=== PATIENT | female | born 1940 | race Caucasian/White ===

== ENCOUNTER 2024-09-17 18:09 | Emergency (ER) | payer BC, MEDICARE ==
[~2024-09-17] VITALS: Ht 154.9 cm; Wt 63.5 kg
[2024-09-17] MEDS ORDERED: ACETAMINOPHEN ES 500 MG TABLET ONE (18:31)
[2024-09-17] MEDS: ACETAMINOPHEN ES 500 MG TABLET PO ONE (18:32)
[2024-09-17 18:43] LABS: BASOPHILS # (AUTO) 0.1 K/uL (0.0-0.2); BASOPHILS % (AUTO) 0.6 % (0.0-2.0); EOSINOPHILS # (AUTO) 0.1 K/uL (0.0-0.7); EOSINOPHILS % (AUTO) 1.5 % (0.0-6.0); HEMATOCRIT 42 % (33-45); HEMOGLOBIN 14.8 g/dL (11.5-14.8); LYMPHOCYTES # (AUTO) 3.1 K/uL (0.8-4.8); LYMPHOCYTES % (AUTO) 38.8 % (20.0-44.0); MEAN CORPUSCULAR HEMOGLOBIN 32 PG (26.0-33.0); MEAN CORPUSCULAR HGB CONC 35 g/dl (31.0-36.0); MEAN CORPUSCULAR VOLUME 91 fL (82-100); MONOCYTES # (AUTO) 0.5 K/uL (0.1-1.30); MONOCYTES % (AUTO) 6.4 % (2.0-12.0); NEUTROPHILS # (AUTO) 4.2 K/uL (1.8-8.9); NEUTROPHILS % (AUTO) 52.7 % (43.0-81.0); PLATELET COUNT (AUTO) 250 K/uL (150-450); RED BLOOD CELL COUNT(AUTO) 4.66 MIL/uL (4.0-5.2); RED CELL DISTRIBUTION WIDTH 14.7 % (11.5-15.0); WHITE BLOOD COUNT (AUTO) 7.9 K/uL (4.3-11.0)
[2024-09-17 19:20] LABS: CALCIUM, SERUM 9.2 mg/dL (8.5-10.1); CREATININE 0.6 mg/dL (0.6-1.3); POTASSIUM 3.4 mmol/L (3.5-5.1)
[2024-09-17] MEDS ORDERED: LEVO50TA8 PO (19:25)
[2024-09-17] MEDS ORDERED: ZOLP10TA2 PO (19:25)
[2024-09-17] MEDS ORDERED: IBUP-23 PO (19:25)
[2024-09-17 21:58] VITALS: BP 138/88; TEMP 98.2; O2SAT 98
== END 2024-09-17 21:58 | disposition left against medical advice (07) ==
LOC: ER 18:20
DX: S70.01XA Contusion of right hip, initial encounter (principal); R51.9 Headache, unspecified; E03.9 Hypothyroidism, unspecified; W01.0XXA Fall on same level from slipping, tripping and stumbling without subsequent striking against object, initial encounter; Y93.89 Activity, other specified; Y92.89 Other specified places as the place of occurrence of the external cause; Y99.8 Other external cause status
CPT/HCPCS: 36415; 70450-TC; 71045-TC; 72170-TC; 73502; 80048-TC; 85025-TC

== ENCOUNTER 2024-09-17 22:59 | Inpatient (IN) | payer MEDICARE, OTHER ==
[~2024-09-17] VITALS: Ht 154.9 cm; Wt 70.8 kg
[~2024-09-17 22:59] MED LIST: IBUP-23 PO; LEVO50TA8 PO; ZOLP10TA2 PO
[2024-09-17] MEDS ORDERED: ONDANSETRON HCL/PF 4 MG/2 ML VIAL ONE (23:58)
[2024-09-17] MEDS ORDERED: MORPHINE SULFATE INJ 2 MG/ML DISP.SYRIN ONE (23:58)
[2024-09-17] MEDS: ONDANSETRON HCL/PF - ER 4 MG/2 ML VIAL IV ONE (23:59)
[2024-09-17] MEDS: MORPHINE SULFATE INJ 2 MG/ML DISP.SYRIN IV ONE (23:59)
[2024-09-18 00:01] LABS: BASOPHILS % (AUTO) 0.3 % (0.0-2.0); EOSINOPHILS % (AUTO) 0.1 % (0.0-6.0); HEMATOCRIT 41 % (33-45); HEMOGLOBIN 14.6 g/dL (11.5-14.8); LYMPHOCYTES % (AUTO) 16.7 % (20.0-44.0); MEAN CORPUSCULAR HEMOGLOBIN 33 PG (26.0-33.0); MEAN CORPUSCULAR HGB CONC 36 g/dl (31.0-36.0); MEAN CORPUSCULAR VOLUME 93 fL (82-100); MONOCYTES # (AUTO) 0.8 K/uL (0.1-1.30); NEUTROPHILS # (AUTO) 9.1 K/uL (1.8-8.9); NEUTROPHILS % (AUTO) 75.9 % (43.0-81.0); PLATELET COUNT (AUTO) 231 K/uL (150-450); RED CELL DISTRIBUTION WIDTH 14.6 % (11.5-15.0)
[2024-09-18 00:16] LABS: CALCIUM, SERUM 9.4 mg/dL (8.5-10.1); CREATININE 0.6 mg/dL (0.6-1.3); POTASSIUM 3.5 mmol/L (3.5-5.1)
[2024-09-18 00:28] LABS: ALBUMIN 3.7 g/dL (3.4-5.0); BILIRUBIN,TOTAL 0.4 mg/dL (0.2-1.0); TOTAL PROTEIN, SERUM 7.6 g/dL (6.4-8.2)
[2024-09-18] MEDS ORDERED: KETOROLAC TROMETHAMINE 15 MG/ML VIAL ONE (02:10)
[2024-09-18] MEDS: KETOROLAC TROMETHAMINE 15 MG/ML VIAL IV ONE (02:13)
[2024-09-18] MEDS ORDERED: MAG HYDROX/AL HYDROX/SIMETH 30 ML UDC PO PRN (02:30)
[2024-09-18] MEDS ORDERED: ONDANSETRON HCL/PF 4 MG/2 ML VIAL IVP PRN (02:30)
[2024-09-18] MEDS ORDERED: Z GUARD REMEDY 4 OZ OINT TP PRN (02:30)
[2024-09-18] MEDS ORDERED: MAGNESIUM HYDROXIDE 30 ML UDC PO PRN (02:30)
[2024-09-18] MEDS: LEVOTHYROXINE SODIUM 50 MCG TABLET PO SCH (08:29)
[2024-09-18 09:00] VITALS: BP 139/104; TEMP 99.7; O2SAT 97
[2024-09-18 09:30] VITALS: BP 159/73; TEMP 99; O2SAT 96
[2024-09-18] MEDS: HYDROCODONE/APAP 10/325MG TABLET PO PRN (10:31)
[2024-09-18 15:22] VITALS: BP 159/73; TEMP 99; O2SAT 96
[2024-09-18 16:00] VITALS: BP 145/65; TEMP 99.3; O2SAT 96
[2024-09-18 16:35] VITALS: TEMP 98.1
[2024-09-18 20:00] VITALS: BP 149/86; TEMP 98.1; O2SAT 100
[2024-09-19 04:01] VITALS: BP 149/86; TEMP 98; O2SAT 100
[2024-09-19 07:29] LABS: BASOPHILS % (AUTO) 0.2 % (0.0-2.0); EOSINOPHILS % (AUTO) 0.3 % (0.0-6.0); HEMATOCRIT 37 % (33-45); HEMOGLOBIN 13.9 g/dL (11.5-14.8); LYMPHOCYTES # (AUTO) 1.6 K/uL (0.8-4.8); LYMPHOCYTES % (AUTO) 20.1 % (20.0-44.0); MEAN CORPUSCULAR HEMOGLOBIN 35 PG (26.0-33.0); MEAN CORPUSCULAR HGB CONC 38 g/dl (31.0-36.0); MEAN CORPUSCULAR VOLUME 93 fL (82-100); MONOCYTES # (AUTO) 0.6 K/uL (0.1-1.30); MONOCYTES % (AUTO) 7.3 % (2.0-12.0); NEUTROPHILS # (AUTO) 5.9 K/uL (1.8-8.9); NEUTROPHILS % (AUTO) 72.1 % (43.0-81.0); PLATELET COUNT (AUTO) 225 K/uL (150-450); RED BLOOD CELL COUNT(AUTO) 3.97 MIL/uL (4.0-5.2); RED CELL DISTRIBUTION WIDTH 14.6 % (11.5-15.0); WHITE BLOOD COUNT (AUTO) 8.2 K/uL (4.3-11.0)
[2024-09-19 07:59] LABS: CREATININE 0.7 mg/dL (0.6-1.3); MAGNESIUM 2.2 mg/dL (1.8-2.4); PHOSPHORUS 3.1 mg/dL (2.5-4.9); POTASSIUM 3.4 mmol/L (3.5-5.1)
[2024-09-19 08:00] VITALS: BP 147/81; TEMP 99; O2SAT 94
[2024-09-19] MEDS: ACETAMINOPHEN 325 MG TABLET PO PRN (09:02)
[2024-09-19] MEDS ORDERED: POTASSIUM CHLORIDE 20 MEQ TAB.PRT.SR PO ONE (11:00)
[2024-09-19] MEDS: POTASSIUM CHLORIDE 20 MEQ TAB.PRT.SR PO ONE (11:03)
[2024-09-19 15:11] LABS: THYROID STIMULATING HORMONE 3.7 uIU/mL (0.358-3.74)
[2024-09-19] MEDS ORDERED: IOHEXOL-350 100 ML VIAL IV ONE (15:39)
[2024-09-19] MEDS ORDERED: IV NS 0.9% 250 ML IV ONE (15:40)
[2024-09-19 16:00] VITALS: BP 160/80; TEMP 98.6; O2SAT 98
[2024-09-19 16:37] LABS: APPEARANCE,URINE TURBID (CLEAR); BILIRUBIN,URINE NEGATIVE (NEGATIVE); BLOOD, URINE 1+ Ery/uL (NEGATIVE); COLOR,URINE YELLOW (YELLOW); KETONES,URINE NEGATIVE (NEGATIVE); LEUKOCYTE ESTERASE ,URINE 1+ (NEGATIVE); NITRITE, URINE NEGATIVE (NEGATIVE); PROTEIN,URINE NEGATIVE (NEGATIVE); UGLUCOSE NEGATIVE (NEGATIVE); UROBILINOGEN,URINE 0.2 EU/dL (0.2)
[2024-09-19 17:02] LABS: ADD URINE CULTURE YES; BACTERIA,URINE 4+ /HPF (None Seen); WBC,URINE 21-50 /HPF (0-3)
[2024-09-19 17:03] LABS: CALCIUM OXALATE CRYSTALS,UR Rare /HPF (None Seen)
[2024-09-19 21:30] VITALS: BP 173/102; TEMP 98.4; O2SAT 98
[2024-09-19 22:30] VITALS: BP 170/93; TEMP 98.2; O2SAT 98
[2024-09-19 23:00] VITALS: BP 165/100; TEMP 98.4; O2SAT 98
[2024-09-19] MEDS: CLONIDINE HCL 0.1 MG TABLET PO ONE (23:27)
[2024-09-20 01:07] VITALS: BP 145/79; TEMP 98; O2SAT 96
[2024-09-20 06:48] LABS: CALCIUM, SERUM 8.8 mg/dL (8.5-10.1); CREATININE 0.7 mg/dL (0.6-1.3); POTASSIUM 3.8 mmol/L (3.5-5.1)
[2024-09-20 08:00] VITALS: BP 145/74; TEMP 97.7; O2SAT 96
[2024-09-20 11:07] LABS: FOLIC ACID 6.6 ng/mL (>3.0)
[2024-09-20 16:00] VITALS: BP 158/86; TEMP 97.9; O2SAT 97
[2024-09-20 20:00] VITALS: BP 145/72; TEMP 98.1; TEMP 98.2; O2SAT 97
[2024-09-21 07:00] VITALS: BP 122/77; TEMP 98.1; O2SAT 94
[2024-09-21 08:57] LABS: CALCIUM, SERUM 8.9 mg/dL (8.5-10.1); CREATININE 0.7 mg/dL (0.6-1.3)
[2024-09-21 16:00] VITALS: BP 129/80; TEMP 98.2; O2SAT 93
== END 2024-09-21 19:15 | DRG 563 ==
LOC: ER 23:02 → TRANSITION 09-18 05:20 → MED 09-18 06:11
PROVIDERS: ADMIT Nurse Practitioner Acute Care; ATTEND Internal Medicine
DX: S49.191A Other physeal fracture of lower end of humerus, right arm, initial encounter for closed fracture (principal); N39.0 Urinary tract infection, site not specified; W19.XXXA Unspecified fall, initial encounter; I10 Essential (primary) hypertension; R29.6 Repeated falls; W01.0XXA Fall on same level from slipping, tripping and stumbling without subsequent striking against object, initial encounter; E78.5 Hyperlipidemia, unspecified; E03.9 Hypothyroidism, unspecified; E66.9 Obesity, unspecified; H54.8 Legal blindness, as defined in USA; S70.01XA Contusion of right hip, initial encounter; R54 Age-related physical debility; Z20.822 Contact with and (suspected) exposure to COVID-19; Y92.008 Other place in unspecified non-institutional (private) residence as the place of occurrence of the external cause; Z68.29 Body mass index [BMI] 29.0-29.9, adult
CPT/HCPCS: 36415; 70450-TC; 70496-TC; 70498-TC; 72192-TC; 73080-TC; 73200-TC; 80048-TC; 80053-TC; 81001; 82607-TC; 83735-TC; 83880; 83921; 84100-TC; 84425; 84443-TC; 84484-TC; 85025-TC; 87086-TC; 97110-TC; 97112-TC; 97530-TC; 97535-TC; G0378; J1885; J2270; J2405; J7050; Q9967

== ENCOUNTER 2024-10-24 16:28 | Inpatient (IN) | payer OTHER ==
[~2024-10-24] VITALS: Ht 154.9 cm; Wt 60.3 kg
[2024-10-24 17:02] LABS: BASOPHILS # (AUTO) 0.1 K/uL (0.0-0.2); BASOPHILS % (AUTO) 0.6 % (0.0-2.0); HEMATOCRIT 47 % (33-45); HEMOGLOBIN 15.9 g/dL (11.5-14.8); LYMPHOCYTES # (AUTO) 2.6 K/uL (0.8-4.8); MEAN CORPUSCULAR HEMOGLOBIN 30 PG (26.0-33.0); MEAN CORPUSCULAR HGB CONC 34 g/dl (31.0-36.0); MEAN CORPUSCULAR VOLUME 88 fL (82-100); MONOCYTES # (AUTO) 0.7 K/uL (0.1-1.30); MONOCYTES % (AUTO) 6.5 % (2.0-12.0); NEUTROPHILS # (AUTO) 7.1 K/uL (1.8-8.9); NEUTROPHILS % (AUTO) 67.9 % (43.0-81.0); PLATELET COUNT (AUTO) 306 K/uL (150-450); RED BLOOD CELL COUNT(AUTO) 5.37 MIL/uL (4.0-5.2); RED CELL DISTRIBUTION WIDTH 15.6 % (11.5-15.0); WHITE BLOOD COUNT (AUTO) 10.4 K/uL (4.3-11.0)
[2024-10-24] MEDS: IV NS 0.9% 1,000 ML BAG IV ONE (17:05)
[2024-10-24 17:17] LABS: SERUM AMMONIA 2 umol/L (11-32)
[2024-10-24 17:18] LABS: CARBON DIOXIDE 27 mmol/L (21-32); CHLORIDE 105 mmol/L (98-107); GLUCOSE 121 mg/dL (74-106); POTASSIUM 3.8 mmol/L (3.5-5.1); SODIUM SERUM 144 mmol/L (136-145); UREA NITROGEN, BLOOD 20 mg/dL (7-18)
[2024-10-24 17:25] LABS: ALANINE AMINOTRANSFERASE 28 U/L (12-78); ALBUMIN 3.2 g/dL (3.4-5.0); ALCOHOL, BLOOD < 3 mg/dL (0-10); ALKALINE PHOSPHATASE 115 U/L (46-116); ASPARTATE AMINOTRANSFERASE 41 U/L (15-37); BILIRUBIN,DIRECT 0.3 mg/dL (0.0-0.2); BILIRUBIN,TOTAL 0.7 mg/dL (0.2-1.0); TOTAL PROTEIN, SERUM 7.8 g/dL (6.4-8.2)
[2024-10-24 19:20] LABS: APPEARANCE,URINE SLIGHTLY CLOUDY (CLEAR); BILIRUBIN,URINE NEGATIVE (NEGATIVE); BLOOD, URINE TRACE-INTA Ery/uL (NEGATIVE); COLOR,URINE YELLOW (YELLOW); KETONES,URINE NEGATIVE (NEGATIVE); LEUKOCYTE ESTERASE ,URINE 1+ (NEGATIVE); NITRITE, URINE NEGATIVE (NEGATIVE); PROTEIN,URINE TRACE mg/dl (NEGATIVE); UGLUCOSE NEGATIVE (NEGATIVE); UROBILINOGEN,URINE 0.2 EU/dL (0.2)
[2024-10-24 19:30] LABS: AMPHETAMINE, URINE NEGATIVE (NEGATIVE); BARBITURATE, URINE NEGATIVE (NEGATIVE); BENZODIAZEPINE, URINE NEGATIVE (NEGATIVE); CANNABINOID, URINE NEGATIVE (NEGATIVE); COCCAINE, URINE NEGATIVE (NEGATIVE); PHENCYCLIDINE SCREEN,URINE NEGATIVE (NEGATIVE)
[2024-10-24 19:34] LABS: OPIATE, URINE POSITIVE (NEGATIVE)
[2024-10-24 19:55] LABS: ADD URINE CULTURE YES; BACTERIA,URINE Many /HPF (None Seen); RBC,URINE 0-2 /HPF (0-2); SQUAMOUS EPITHELIAL CELL,UR Moderate /HPF (None Seen); WBC,URINE 21-50 /HPF (0-3)
[2024-10-24] MEDS ORDERED: ENOXAPARIN SODIUM 60 MG/0.6 ML DISP.SYRIN SQ ONE (20:36)
[2024-10-24] MEDS ORDERED: CEFTRIAXONE 1GM BAG (ER ONLY) 50 ML IV ONE (20:36)
[2024-10-24] MEDS: CEFTRIAXONE 1GM BAG (ER ONLY) 50 ML IV ONE (20:40)
[2024-10-24] MEDS: ENOXAPARIN SODIUM 60 MG/0.6 ML DISP.SYRIN SQ ONE (20:42)
[2024-10-24 21:00] VITALS: BP 115/72; TEMP 98.6; O2SAT 97
[2024-10-24] MEDS ORDERED: Z GUARD REMEDY 4 OZ OINT TP PRN (21:00)
[2024-10-24] MEDS: IV D5/0.45 NACL 1,000 ML IV ONE (21:33)
[2024-10-25] VITALS (7 sets, daily range): BP systolic 99–117; BP diastolic 61–69; TEMP 97.7–98.5; O2SAT 96–100
[2024-10-25] MEDS: LEVOTHYROXINE SODIUM 50 MCG TABLET PO SCH (07:30)
[2024-10-25] MEDS ORDERED: ENOXAPARIN SODIUM 60 MG/0.6 ML DISP.SYRIN SQ SCH (08:30)
[2024-10-25 08:38] LABS: BASOPHILS # (AUTO) 0.1 K/uL (0.0-0.2); BASOPHILS % (AUTO) 0.8 % (0.0-2.0); EOSINOPHILS # (AUTO) 0.1 K/uL (0.0-0.7); EOSINOPHILS % (AUTO) 0.9 % (0.0-6.0); HEMATOCRIT 40 % (33-45); HEMOGLOBIN 13.4 g/dL (11.5-14.8); LYMPHOCYTES # (AUTO) 1.9 K/uL (0.8-4.8); LYMPHOCYTES % (AUTO) 29.1 % (20.0-44.0); MEAN CORPUSCULAR HEMOGLOBIN 30 PG (26.0-33.0); MEAN CORPUSCULAR HGB CONC 34 g/dl (31.0-36.0); MEAN CORPUSCULAR VOLUME 89 fL (82-100); MONOCYTES # (AUTO) 0.5 K/uL (0.1-1.30); MONOCYTES % (AUTO) 7.6 % (2.0-12.0); NEUTROPHILS # (AUTO) 4.1 K/uL (1.8-8.9); NEUTROPHILS % (AUTO) 61.6 % (43.0-81.0); PLATELET COUNT (AUTO) 231 K/uL (150-450); RED CELL DISTRIBUTION WIDTH 15.5 % (11.5-15.0); WHITE BLOOD COUNT (AUTO) 6.6 K/uL (4.3-11.0)
[2024-10-25 08:53] LABS: CREATININE 0.6 mg/dL (0.6-1.3); MAGNESIUM 1.9 mg/dL (1.8-2.4); PHOSPHORUS 2.4 mg/dL (2.5-4.9); POTASSIUM 3.1 mmol/L (3.5-5.1)
[2024-10-25] MEDS: PANTOPRAZOLE 40 MG VIAL IV SCH (08:59)
[2024-10-25] MEDS: ENOXAPARIN SODIUM 60 MG/0.6 ML DISP.SYRIN SQ SCH (09:00)
[2024-10-25] MEDS: POTASSIUM CL. PREMIX PERIPHER. 50 ML IV SCH (09:32)
[2024-10-25] MEDS ORDERED: POTASSIUM CHLORIDE 20 MEQ TAB.PRT.SR PO ONE (10:30)
[2024-10-25] MEDS: NEOMY SULF/BACITRAC ZN/POLY 15 GM TUBE TP SCH (10:40)
[2024-10-25] MEDS: Sodium Phosphate 15 MMOL in IV NS 0.9% 245 ML IV ONE (17:24)
[2024-10-25] MEDS: CEFTRIAXONE 1 G in IV D5W 50 ML IV SCH (20:10)
[2024-10-26] VITALS: BP 104/79; TEMP 97.8; O2SAT 94
[2024-10-26 04:00] VITALS: BP 118/69; TEMP 97.6; O2SAT 96
[2024-10-26 07:37] LABS: BASOPHILS % (AUTO) 0.4 % (0.0-2.0); EOSINOPHILS # (AUTO) 0.1 K/uL (0.0-0.7); EOSINOPHILS % (AUTO) 1.3 % (0.0-6.0); HEMATOCRIT 37 % (33-45); HEMOGLOBIN 12.8 g/dL (11.5-14.8); LYMPHOCYTES # (AUTO) 1.4 K/uL (0.8-4.8); LYMPHOCYTES % (AUTO) 30.1 % (20.0-44.0); MEAN CORPUSCULAR HEMOGLOBIN 32 PG (26.0-33.0); MEAN CORPUSCULAR HGB CONC 35 g/dl (31.0-36.0); MEAN CORPUSCULAR VOLUME 90 fL (82-100); MONOCYTES # (AUTO) 0.4 K/uL (0.1-1.30); NEUTROPHILS # (AUTO) 2.9 K/uL (1.8-8.9); NEUTROPHILS % (AUTO) 60.2 % (43.0-81.0); PLATELET COUNT (AUTO) 198 K/uL (150-450); RED BLOOD CELL COUNT(AUTO) 4.06 MIL/uL (4.0-5.2); RED CELL DISTRIBUTION WIDTH 15.4 % (11.5-15.0); WHITE BLOOD COUNT (AUTO) 4.8 K/uL (4.3-11.0)
[2024-10-26 07:52] LABS: CALCIUM, SERUM 9.2 mg/dL (8.5-10.1); CREATININE 0.4 mg/dL (0.6-1.3); POTASSIUM 3.4 mmol/L (3.5-5.1)
[2024-10-26] MEDS: POTASSIUM CHLORIDE 20 MEQ TAB.PRT.SR PO SCH (12:15)
[2024-10-26] MEDS: METOPROLOL TARTRATE 25 MG TABLET PO SCH (18:28)
[2024-10-26 20:00] VITALS: BP 123/83; TEMP 97.7; O2SAT 97
[2024-10-27] VITALS: BP 117/67; TEMP 98.1; O2SAT 96
[2024-10-27] MEDS: IV D5/0.45 NACL 1,000 ML IV PRN (01:27)
[2024-10-27 04:00] VITALS: BP 126/63; TEMP 97.9; O2SAT 96
[2024-10-27 07:05] LABS: BASOPHILS % (AUTO) 0.3 % (0.0-2.0); EOSINOPHILS # (AUTO) 0.1 K/uL (0.0-0.7); EOSINOPHILS % (AUTO) 1.9 % (0.0-6.0); HEMATOCRIT 39 % (33-45); LYMPHOCYTES # (AUTO) 1.7 K/uL (0.8-4.8); MEAN CORPUSCULAR HEMOGLOBIN 31 PG (26.0-33.0); MEAN CORPUSCULAR HGB CONC 34 g/dl (31.0-36.0); MEAN CORPUSCULAR VOLUME 91 fL (82-100); MONOCYTES # (AUTO) 0.4 K/uL (0.1-1.30); MONOCYTES % (AUTO) 7.7 % (2.0-12.0); NEUTROPHILS # (AUTO) 3.1 K/uL (1.8-8.9); NEUTROPHILS % (AUTO) 58.1 % (43.0-81.0); PLATELET COUNT (AUTO) 213 K/uL (150-450); RED BLOOD CELL COUNT(AUTO) 4.26 MIL/uL (4.0-5.2); RED CELL DISTRIBUTION WIDTH 15.7 % (11.5-15.0); WHITE BLOOD COUNT (AUTO) 5.3 K/uL (4.3-11.0)
[2024-10-27 07:36] LABS: CALCIUM, SERUM 8.6 mg/dL (8.5-10.1); CREATININE 0.6 mg/dL (0.6-1.3); POTASSIUM 3.4 mmol/L (3.5-5.1)
[2024-10-27 08:00] VITALS: BP 126/73; TEMP 98.8; O2SAT 97
[2024-10-27] MEDS: POTASSIUM CHLORIDE 20 MEQ TAB.PRT.SR PO ONE (08:48)
[2024-10-27] MEDS: PANTOPRAZOLE 40 MG TABLET.DR PO SCH (08:49)
[2024-10-27 13:12] VITALS: BP 119/73; TEMP 98.4; O2SAT 96
[2024-10-27 16:00] VITALS: BP 157/95; TEMP 97.9; O2SAT 96
[2024-10-27 20:00] VITALS: BP_SYST 104; BP_SYST 109; BP_DIAS 66; TEMP 98.2; O2SAT 97
[2024-10-28] VITALS: BP 131/63; TEMP 99; O2SAT 95
[2024-10-28 04:00] VITALS: BP 119/59; TEMP 98.6; O2SAT 96
[2024-10-28 08:00] VITALS: BP 120/68; TEMP 98.4; O2SAT 96
[2024-10-28] MEDS: MUPIROCIN OINT 2% 22 GM TUBE NS SCH (11:11)
[2024-10-28 12:00] VITALS: BP 113/76; TEMP 97.9; O2SAT 96
[2024-10-28 16:00] VITALS: BP 111/91; TEMP 97.5
[2024-10-28 20:00] VITALS: BP 124/55; TEMP 97.8; O2SAT 96
[2024-10-29] VITALS: BP 144/82; TEMP 98; O2SAT 95
[2024-10-29 08:00] VITALS: BP 119/63; TEMP 98.3; O2SAT 97
[2024-10-29 10:09] LABS: CALCIUM, SERUM 8.6 mg/dL (8.5-10.1); CARBON DIOXIDE 21 mmol/L (21-32); CHLORIDE 107 mmol/L (98-107); CREATININE 0.7 mg/dL (0.6-1.3); GLUCOSE 127 mg/dL (74-106); POTASSIUM 3.5 mmol/L (3.5-5.1); SODIUM SERUM 140 mmol/L (136-145); UREA NITROGEN, BLOOD 3 mg/dL (7-18)
[2024-10-29 10:19] LABS: BASOPHILS % (AUTO) 0.2 % (0.0-2.0); EOSINOPHILS # (AUTO) 0.1 K/uL (0.0-0.7); EOSINOPHILS % (AUTO) 1.1 % (0.0-6.0); HEMATOCRIT 45 % (33-45); HEMOGLOBIN 15.3 g/dL (11.5-14.8); LYMPHOCYTES # (AUTO) 1.8 K/uL (0.8-4.8); LYMPHOCYTES % (AUTO) 26.7 % (20.0-44.0); MEAN CORPUSCULAR HEMOGLOBIN 31 PG (26.0-33.0); MEAN CORPUSCULAR HGB CONC 34 g/dl (31.0-36.0); MEAN CORPUSCULAR VOLUME 91 fL (82-100); MONOCYTES # (AUTO) 0.6 K/uL (0.1-1.30); MONOCYTES % (AUTO) 9.3 % (2.0-12.0); NEUTROPHILS # (AUTO) 4.1 K/uL (1.8-8.9); NEUTROPHILS % (AUTO) 62.7 % (43.0-81.0); PLATELET COUNT (AUTO) 148 K/uL (150-450); RED BLOOD CELL COUNT(AUTO) 4.94 MIL/uL (4.0-5.2); RED CELL DISTRIBUTION WIDTH 16.2 % (11.5-15.0); WHITE BLOOD COUNT (AUTO) 6.6 K/uL (4.3-11.0)
[2024-10-29 12:00] VITALS: BP 121/81; TEMP 98.3; O2SAT 96
[2024-10-29 16:00] VITALS: BP 92/66; TEMP 97.8; O2SAT 94
[2024-10-29 20:00] VITALS: BP 101/67; TEMP 98.1; O2SAT 96
[2024-10-30] VITALS: BP 103/56; TEMP 98; TEMP 98.8; O2SAT 96
[2024-10-30 04:00] VITALS: BP 105/69; TEMP 97.8; O2SAT 97
[2024-10-30 08:00] VITALS: BP 127/67; TEMP 97.7; O2SAT 98
[2024-10-30 12:00] VITALS: BP 157/72; TEMP 97.7; O2SAT 98
[2024-10-30 16:00] VITALS: BP 129/60; TEMP 99.9; O2SAT 94
[2024-10-30 20:00] VITALS: BP 130/60; TEMP 98.6; O2SAT 97
[2024-10-31] VITALS: BP 126/67; TEMP 99.1; O2SAT 95
[2024-10-31 04:00] VITALS: BP 147/74; TEMP 99; O2SAT 96
[2024-10-31 07:00] VITALS: BP 149/74; TEMP 98.1; O2SAT 97
[2024-10-31] MEDS ORDERED: CEFT1VIA15 IV (10:30)
[2024-10-31] MEDS ORDERED: MUPI22OI7 NS (10:30)
[2024-10-31] MEDS ORDERED: LEVO50TA PO (10:30)
[2024-10-31] MEDS ORDERED: METO25TA20 PO (10:30)
[2024-10-31] MEDS ORDERED: PANT40TA49 PO (10:30)
[2024-10-31] MEDS ORDERED: ACET325T53 PO (10:30)
[2024-10-31 16:00] VITALS: BP 114/67; TEMP 98.6; O2SAT 99
[2024-10-31 20:00] VITALS: BP 135/71; TEMP 97.9; O2SAT 97
[2024-11-01] VITALS: BP 150/79; TEMP 98.1; O2SAT 96
[2024-11-01 04:00] VITALS: BP 130/65; TEMP 98.1; O2SAT 96
[2024-11-01 10:57] VITALS: BP 129/85; TEMP 98.1; O2SAT 100
[2024-11-01 16:00] VITALS: BP 125/73; TEMP 98.1; O2SAT 97
[2024-11-01 20:00] VITALS: BP 124/69; TEMP 98.8; O2SAT 98
[2024-11-02] VITALS (7 sets, daily range): BP systolic 126–146; BP diastolic 60–84; TEMP 97.5–99.1; O2SAT 96–99
[2024-11-03] VITALS: BP 158/64; TEMP 98.2; O2SAT 93
[2024-11-03 00:37] VITALS: BP 158/64; TEMP 98.2; O2SAT 93
[2024-11-03] MEDS: ACETAMINOPHEN 325 MG TABLET PO PRN (01:35)
[2024-11-03 04:00] VITALS: BP 129/64; TEMP 98.4; O2SAT 97
[2024-11-03 08:00] VITALS: BP 124/66; TEMP 97.8; O2SAT 97
[2024-11-03 16:00] VITALS: BP 117/59; TEMP 97.3; O2SAT 99
[2024-11-03 20:00] VITALS: BP 139/72; TEMP 98.2; O2SAT 97
[2024-11-04] VITALS: BP 144/58; TEMP 98.4; O2SAT 97
[2024-11-04 04:00] VITALS: BP 121/76; TEMP 98.6; O2SAT 95
[2024-11-04 08:00] VITALS: BP 141/57; TEMP 98.2; O2SAT 95
[2024-11-04 08:18] LABS: BASOPHILS # (AUTO) 0.1 K/uL (0.0-0.2); BASOPHILS % (AUTO) 1.2 % (0.0-2.0); EOSINOPHILS # (AUTO) 0.1 K/uL (0.0-0.7); EOSINOPHILS % (AUTO) 1.9 % (0.0-6.0); HEMATOCRIT 37 % (33-45); HEMOGLOBIN 12.7 g/dL (11.5-14.8); LYMPHOCYTES # (AUTO) 1.7 K/uL (0.8-4.8); MEAN CORPUSCULAR HEMOGLOBIN 30 PG (26.0-33.0); MEAN CORPUSCULAR HGB CONC 35 g/dl (31.0-36.0); MEAN CORPUSCULAR VOLUME 87 fL (82-100); MONOCYTES # (AUTO) 0.4 K/uL (0.1-1.30); MONOCYTES % (AUTO) 7.6 % (2.0-12.0); NEUTROPHILS % (AUTO) 57.3 % (43.0-81.0); PLATELET COUNT (AUTO) 263 K/uL (150-450); RED BLOOD CELL COUNT(AUTO) 4.22 MIL/uL (4.0-5.2); RED CELL DISTRIBUTION WIDTH 15.9 % (11.5-15.0); WHITE BLOOD COUNT (AUTO) 5.3 K/uL (4.3-11.0)
[2024-11-04 08:38] LABS: CALCIUM, SERUM 8.6 mg/dL (8.5-10.1); CREATININE 0.3 mg/dL (0.6-1.3)
[2024-11-04 08:43] LABS: POTASSIUM 2.5 mmol/L (3.5-5.1)
[2024-11-04] MEDS: POTASSIUM CHLORIDE 20 MEQ TAB.PRT.SR PO ONE (10:02)
[2024-11-04 12:00] VITALS: BP 121/60; TEMP 98.3; O2SAT 98
[2024-11-04 16:00] VITALS: BP 120/73; TEMP 98.4; O2SAT 100
[2024-11-04 20:00] VITALS: BP 132/68; TEMP 98.1; O2SAT 97
[2024-11-05 07:29] LABS: BASOPHILS % (AUTO) 0.6 % (0.0-2.0); EOSINOPHILS # (AUTO) 0.1 K/uL (0.0-0.7); EOSINOPHILS % (AUTO) 1.2 % (0.0-6.0); HEMATOCRIT 37 % (33-45); HEMOGLOBIN 12.9 g/dL (11.5-14.8); LYMPHOCYTES % (AUTO) 34.2 % (20.0-44.0); MEAN CORPUSCULAR HEMOGLOBIN 31 PG (26.0-33.0); MEAN CORPUSCULAR HGB CONC 35 g/dl (31.0-36.0); MEAN CORPUSCULAR VOLUME 88 fL (82-100); MONOCYTES # (AUTO) 0.5 K/uL (0.1-1.30); MONOCYTES % (AUTO) 7.9 % (2.0-12.0); NEUTROPHILS # (AUTO) 3.3 K/uL (1.8-8.9); NEUTROPHILS % (AUTO) 56.1 % (43.0-81.0); PLATELET COUNT (AUTO) 283 K/uL (150-450); RED BLOOD CELL COUNT(AUTO) 4.23 MIL/uL (4.0-5.2); RED CELL DISTRIBUTION WIDTH 15.8 % (11.5-15.0); WHITE BLOOD COUNT (AUTO) 5.9 K/uL (4.3-11.0)
[2024-11-05 07:47] LABS: CALCIUM, SERUM 8.8 mg/dL (8.5-10.1); CREATININE 0.5 mg/dL (0.6-1.3); MAGNESIUM 1.9 mg/dL (1.8-2.4)
[2024-11-05 08:00] VITALS: BP 148/67; TEMP 97.9; O2SAT 98
[2024-11-05 08:27] LABS: POTASSIUM 2.7 mmol/L (3.5-5.1)
[2024-11-05] MEDS: POTASSIUM CL. PREMIX PERIPHER. 50 ML IV SCH (09:30)
[2024-11-05] MEDS ORDERED: MAGNESIUM HYDROXIDE 30 ML UDC PO PRN (15:00)
[2024-11-05 16:00] VITALS: BP 132/64; TEMP 97.9; O2SAT 99
[2024-11-05 16:53] VITALS: BP 132/64; TEMP 97.9; O2SAT 99
[2024-11-05 20:00] VITALS: BP 124/66; TEMP 97.9; O2SAT 97
[2024-11-06 07:21] LABS: CALCIUM, SERUM 8.6 mg/dL (8.5-10.1); CREATININE 0.4 mg/dL (0.6-1.3)
[2024-11-06 07:32] LABS: BASOPHILS % (AUTO) 0.8 % (0.0-2.0); EOSINOPHILS # (AUTO) 0.1 K/uL (0.0-0.7); EOSINOPHILS % (AUTO) 1.4 % (0.0-6.0); HEMATOCRIT 36 % (33-45); HEMOGLOBIN 12.6 g/dL (11.5-14.8); LYMPHOCYTES % (AUTO) 32.7 % (20.0-44.0); MEAN CORPUSCULAR HEMOGLOBIN 31 PG (26.0-33.0); MEAN CORPUSCULAR HGB CONC 35 g/dl (31.0-36.0); MEAN CORPUSCULAR VOLUME 89 fL (82-100); MONOCYTES # (AUTO) 0.4 K/uL (0.1-1.30); MONOCYTES % (AUTO) 7.2 % (2.0-12.0); NEUTROPHILS # (AUTO) 3.5 K/uL (1.8-8.9); NEUTROPHILS % (AUTO) 57.9 % (43.0-81.0); PLATELET COUNT (AUTO) 285 K/uL (150-450); RED BLOOD CELL COUNT(AUTO) 4.08 MIL/uL (4.0-5.2); RED CELL DISTRIBUTION WIDTH 16.1 % (11.5-15.0); WHITE BLOOD COUNT (AUTO) 6.1 K/uL (4.3-11.0)
[2024-11-06 08:00] VITALS: BP 137/50; TEMP 99.3; O2SAT 96
[2024-11-06 08:48] LABS: POTASSIUM 2.6 mmol/L (3.5-5.1)
[2024-11-06] MEDS: POTASSIUM CL. PREMIX PERIPHER. 50 ML IV SCH (11:13)
[2024-11-06 16:00] VITALS: BP 128/70; TEMP 99.7; O2SAT 98
[2024-11-06 20:00] VITALS: BP 139/59; TEMP 97.4; O2SAT 96
[2024-11-07 16:00] VITALS: BP 111/61; TEMP 97.9; O2SAT 98
== END 2024-11-07 19:50 | DRG 640 ==
LOC: ER 16:34 → TELE 19:47 → MED 11-04 17:12
PROVIDERS: ATTEND Nurse Practitioner Family
DX: E86.0 Dehydration (principal); G93.41 Metabolic encephalopathy; I21.A1 Myocardial infarction type 2; N17.0 Acute kidney failure with tubular necrosis; N39.0 Urinary tract infection, site not specified; D68.59 Other primary thrombophilia; I42.9 Cardiomyopathy, unspecified; E87.6 Hypokalemia; E78.5 Hyperlipidemia, unspecified; E03.9 Hypothyroidism, unspecified; I10 Essential (primary) hypertension; H54.8 Legal blindness, as defined in USA; G30.9 Alzheimer's disease, unspecified; Z74.09 Other reduced mobility; R54 Age-related physical debility; B96.20 Unspecified Escherichia coli [E. coli] as the cause of diseases classified elsewhere; I44.7 Left bundle-branch block, unspecified; F02.80 Dementia in other diseases classified elsewhere, unspecified severity, without behavioral disturbance, psychotic disturbance, mood disturbance, and anxiety; Z22.322 Carrier or suspected carrier of Methicillin resistant Staphylococcus aureus
CPT/HCPCS: 36415; 70450-TC; 71045-TC; 80048-TC; 80061-TC; 80076-TC; 81001; 82140-TC; 82962-TC; 83735-TC; 84100-TC; 84443-TC; 84484-TC; 85025-TC; 87040-TC; 87081-TC; 87086-TC; 87186-TC; 92526; 92611-TC; 93307-TC; 97110-TC; 97112-TC; 97116-TC; 97530-TC; 97535-TC; A4223; A9563; G0378; G0480; J0696; J1650; J2470; J3480; J3490; J7030; J7040; J7050; J7060